=== PATIENT | male | born 1965 | race African-American/Black ===

== ENCOUNTER → 2024-01-15 16:58 | Outpatient (REF) | payer BC, SELFPAY | LOC: RAD 16:58 | PROVIDERS: ATTENDING PHYSICIAN Registered Nurse | DX: M54.41 Lumbago with sciatica, right side (principal) | CPT/HCPCS: 72110 ==

== ENCOUNTER → 2024-02-18 19:55 | Outpatient (REF) | payer BC, SELFPAY | LOC: MRI 19:55 | PROVIDERS: ATTENDING PHYSICIAN Family Medicine | DX: R20.2 Paresthesia of skin (principal); M54.41 Lumbago with sciatica, right side | CPT/HCPCS: 72141; 72148 ==

== ENCOUNTER → 2024-04-26 19:14 | Outpatient (REF) | payer BC, SELFPAY | LOC: MRI 19:14 | PROVIDERS: ATTENDING PHYSICIAN Family Medicine | DX: M54.41 Lumbago with sciatica, right side (principal); R20.2 Paresthesia of skin | CPT/HCPCS: 70551 ==

== ENCOUNTER 2024-10-09 19:37 | Emergency (ER) | payer BC, SELFPAY ==
[2024-10-09 19:37] VITALS: BMI 31.8
[2024-10-09 19:42] VITALS: BP 150/95
[2024-10-09 20:19] LABS: % Basophils 0.8 % (0-2); % Eosinophils 0.5 % (0-6); % Immature Granulocytes 0.3 % (0-0.5); % Lymphocytes 57.3 % (20.5-51.1); % Monocytes 9.1 % (1.7-9.3); Absolute Lymphocytes 2.3 10^3/uL (1.2-3.4); Absolute Monocytes 0.4 10^3/uL (0.1-0.6); Absolute Neutrophils 1.3 10^3/uL (1.4-6.5); Hematocrit 33.7 % (39.0-52.0); Hemoglobin 11.6 g/dL (13.0-18.0); Mean Corp Hgb Conc. 34.4 g/dL (33.0-37.0); Mean Corpuscular Hgb 32.3 pg (27.0-31.0); Mean Corpuscular Volume 93.9 fL (80.0-94.0); Mean Platelet Volume 9.4 fL (7.4-10.4); Nucleated Red Blood Cells % 0 % (-); Platelet Count 191 10^3/uL (130-400); Red Blood Cell Count 3.59 10^6/uL (4.70-6.10); Red Cell Dist. Width 13.2 % (11.5-14.5)
[2024-10-09 20:23] LABS: ALT (SGPT) 35 U/L (0-50); AST (SGOT) 100 U/L (17-59); Albumin 4.6 g/dl (3.5-5.0); Alkaline Phosphatase 64 U/L (38-126); Blood Urea Nitrogen 10 mg/dl (9-20); Carbon Dioxide 26 mmol/L (22-30); Chloride 108 mmol/L (98-107); Glucose 96 mg/dl (70-99); Potassium 3.4 mmol/L (3.5-5.1); Sodium 147 mmol/L (135-145); Total Bilirubin 0.5 mg/dl (0.2-1.3); Total Protein 8.2 g/dl (6.3-8.2); eGFR > 60.00
[2024-10-09 21:42] VITALS: BP 131/90
[2024-10-09 22:00] VITALS: BP 124/78
[2024-10-09 22:03] VITALS: BP 126/82
--- NOTE | 2024-10-09 22:27 | ED.GENMED ---
History of Present Illness
General
Chief Complaint: Cardiac Symptoms
Source: patient
Exam Limitations: none
Time Seen by Provider: 10/09/24 22:14
History of Present Illness
History of Present Illness:
Patient noted an irregular heartbeat on his Apple Watch. Asymptomatic. No chest pain shortness of breath syncope or other complaints. Remote history of A-fib once. Was transiently on Eliquis at that time. Currently takes an aspirin a day
Past History
Past History
ED Past Medical History: Arrthythmia, GERD, HTN and Hypercholesterolemia
ED Past Surgical History: Orthopedic and Other (Umbilical hernia repair)
Social History
Tobacco: Non-smoker
Alcohol: Daily (Patient states that this is somewhat new as he recently lost his job and has been drinking more frequently)
Drug: None
Personal:
Living: with family
Review of Systems
Review of Systems
All Other Systems: Not applicable
Constitutional: Denies fever
Respiratory: Reports no symptoms
Cardiac: Reports no symptoms
Phy Exam
Physical Exam
Physical Exam:
GENERAL: Alert and oriented in no apparent distress
EYE: Orbits normal.
NECK: Supple, no significant adenopathy.
ENT: Pharynx without erythema
CARDIAC: Mildly irregular. No murmur
LUNGS: Clear breath sounds,normal
ABDOMEN: Soft, without focal tenderness or distention
NEUROLOGICAL: Alert and oriented , grossly non-focal
SKIN: Warm and dry, no rash or lesion, no discoloration, skin intact.
MUSCULOSKELETAL: No edema,no deformity.Good color
PSYCH: Normal and appropriate interaction.
Scores
[id number] Score for Afib Stroke Risk
Age in Years (65=0, 65-74=1, >/=75=2): <65
Sex (Female=+1): Male
Congestive Heart Failure History (Yes=+1): No
Hypertension History (Yes=+1): Yes
Stroke/TIA/Thromboembolism History (Yes=+2): No
Vascular Disease History (Yes=+1): No
Diabetes Mellitus (Yes=+1): No
Score: 1
Anticoagulation Recommendations: Consider anticoagulation (as validated in nonvalvular fib)
Course
Orders/Labs/Results
Orders:
Orders
10/09/24 19:38
ECG [Electrocardiogram (*1)] Urgent
Reason for Study: Atrial Fibrillation
EKG- Treatment ONCE
10/09/24 19:56
CMP [Comprehensive Metabolic Panel] Urgent
Complete Blood Count/With Diff Urgent
10/09/24 23:14
Apixaban [Eliquis] 5 mg PO NOW STA
Abnormal Lab Results
10/09/24
19:56
WBC 4.0 L 10^3/uL
(4.8-10.8)
RBC 3.59 L 10^6/uL
(4.70-6.10)
Hgb 11.6 L g/dL
(13.0-18.0)
Hct 33.7 L %
(39.0-52.0)
MCH 32.3 H pg
(27.0-31.0)
Absolute Neuts (auto) 1.3 L 10^3/uL
(1.4-6.5)
Neutrophils % 32.0 L %
(42.2-75.2)
Lymphocytes % 57.3 H %
(20.5-51.1)
Sodium 147 H mmol/L
(135-145)
Potassium 3.4 L mmol/L
(3.5-5.1)
Chloride 108 H mmol/L
(98-107)
AST 100 H U/L
(17-59)
10/09/24 19:56
10/09/24 19:56
Vital Signs
Initial and Last Documented VS:
Initial Vital Signs
Temp Pulse Resp BP Pulse Ox
98.4 F 88 18 150/95 98
10/09/24 19:42 10/09/24 19:42 10/09/24 19:42 10/09/24 19:42 10/09/24 19:42
Last Documented Vital Signs
Temp Pulse Resp BP Pulse Ox
98.4 F 60 16 126/82 98
10/09/24 19:42 10/09/24 22:03 10/09/24 22:03 10/09/24 22:03 10/09/24 22:03
MDM/Problems Addressed
Differential Diagnosis Includes:
Patient asymptomatic with a rate controlled atrial fibrillation. Brian Vascor of 1. No contraindication anticoagulation. Discussed with cardiology. Not comfortable depending enough on the Apple Watch to cardiovert currently. Also is
asymptomatic. Will have outpatient close follow-up and start Eliquis. Risk-benefit of Eliquis explained to the patient
*Pulse Oximetry
Patient hypoxic: no
*EKG
Interpreted by ED Provider?: Yes
Interpretation: abnormal
Comparison EKG: changes noted
Heart Rate: 72
Rate: normal
Rhythm: a-fib
[place]: left axis deviation
Interval: normal interval
QRS Pattern: normal QRS
Ischemia: non-specific ST changes
*Electorate Officer Interpretation
Rate: normal
Interpretation: abnormal
Heart Rate: 66
*Critical Care Note
Total Time (30-74mins, 75-104mins- exclusive of procedures): Not Applicable
Data Reviewed
Review of Other/Old Records Reveals: Labs, Records and Testing
ED Attending Note
-
Portions of this chart may have been created with voice recognition software.� Occasional wrong word or��sound alike� substitutions may have occurred due to the inherent limitations of voice recognition software.
Discharge Plan
Departure
Patient Disposition: Home (Routine Discharge)
Date of Disposition: 10/09/24
Time of Disposition: 23:16
Patient with high blood pressure during this ER visit?: Yes
Discharge Problem:
Paroxysmal atrial fibrillation
Instructions: How to take anticoagulants safely, Managing increased bleeding risk, Atrial fibrillation - Discharge instructions, BLOOD PRESSURE
Prescriptions:
New
Eliquis 5 mg tablet
5 mg PO BID Qty: 60 0RF
No Action
diltiazem HCl [Cardizem CD] 360 MG capsule,extended release 24hr
360 mg PO DAILY
folic acid 400 mcg Tablet
0.4 mg PO DAILY
rosuvastatin [Crestor] 5 MG tablet
5 mg PO DAILY
omeprazole 40 mg capsule,delayed release(DR/EC)
40 mg PO DAILYPRN PRN (Reason: REFLUX)
aspirin 81 mg tablet,delayed release (DR/EC)
81 mg PO DAILY
omega 3-vuk-pox-fish oil [Fish Oil] 1,000 mg (120 mg-180 mg) Capsule
1 cap PO DAILY
calcium carbonate-vitamin D3 [Caltrate with Vitamin D3] 600 mg-20 mcg (800 unit) Tablet
2 tab PO DAILY
acetaminophen 325 mg Tablet
650 mg PO Q4HPRN PRN (Reason: mild pain) Qty: 0 0RF
simethicone 80 mg Tablet,Chewable
80 mg PO QIDPRN PRN (Reason: gas pain/bloat) Qty: 14 0RF
Referrals:
Donnie Hanna MD [Active] - Next open appointment
NONE,* [Family Provider] -
Activity Restrictions/Additional Instructions:
The cardiology group should call you tomorrow. If they have not please call them in the morning.
Start the blood thinner.
Interventions
Interventions:
*Risk Screen - Suicide Last Done: 10/09/24 19:42
*General Assessment Last Done: 10/09/24 19:42
*Neglect/Abuse Screening Last Done: 10/09/24 19:42
*ED- Fall Risk Assessment Last Done: 10/09/24 19:42
*ED COVID-19 Vaccine History Last Done: 10/09/24 19:42
*Nursing Disposition Last Done: 10/09/24 23:30
ED- Pulmonary Assessment Last Done: 10/09/24 21:51
ED- Cardiac Assessment Last Done: 10/09/24 21:51
Discharge Date and Time
Discharge Date/Time: 10/09/24 23:31
Print Language: ICELANDIC
[2024-10-09] MEDS: ELIQUIS 5 MG PO (23:21)
== END 2024-10-09 23:31 | disposition home or self-care (01) ==
LOC: EMR 19:37
PROVIDERS: Emergency Medicine; EMERGENCY PHYSICIAN Emergency Medicine
DX: I48.0 Paroxysmal atrial fibrillation (principal); E78.00 Pure hypercholesterolemia, unspecified; I10 Essential (primary) hypertension
CPT/HCPCS: 99284; 80053; 85025; 93005

== ENCOUNTER 2024-10-14 06:47 | Day surgery (SDC) | payer BC, SELFPAY | END 2024-10-14 09:30 | disposition home or self-care (01) | LOC: CATH 06:47 | PROVIDERS: ATTENDING PHYSICIAN Student in an Organized Health Care Education/Training Program; FAMILY PHYSICIAN Family Medicine; OTHER PHYSICIAN Internal Medicine | DX: I48.91 Unspecified atrial fibrillation (principal); I08.3 Combined rheumatic disorders of mitral, aortic and tricuspid valves; I31.39 Other pericardial effusion (noninflammatory) | CPT/HCPCS: 93312; 93320; 93325; 92960; 93005 ==

== ENCOUNTER → 2024-10-24 10:22 | Outpatient (REF) | payer BC, SELFPAY ==
[2024-10-24 11:10] LABS: % Immature Granulocytes 0.3 % (0-0.5); % Monocytes 9.7 % (1.7-9.3); Absolute Monocytes 0.3 10^3/uL (0.1-0.6); Absolute Neutrophils 1.7 10^3/uL (1.4-6.5); Hematocrit 32.1 % (39.0-52.0); Hemoglobin 10.6 g/dL (13.0-18.0); Mean Corpuscular Hgb 31.5 pg (27.0-31.0); Mean Corpuscular Volume 95.5 fL (80.0-94.0); Mean Platelet Volume 9.3 fL (7.4-10.4); Nucleated Red Blood Cells % 0 % (-); Platelet Count 190 10^3/uL (130-400); Red Blood Cell Count 3.36 10^6/uL (4.70-6.10)
[2024-10-24 11:25] LABS: ALT (SGPT) 20 U/L (0-50); AST (SGOT) 27 U/L (17-59); Albumin 4.6 g/dl (3.5-5.0); Alkaline Phosphatase 55 U/L (38-126); Blood Urea Nitrogen 8 mg/dl (9-20); Calcium 9.7 mg/dl (8.4-10.2); Carbon Dioxide 26 mmol/L (22-30); Chloride 105 mmol/L (98-107); Glucose 107 mg/dl (70-99); HDL Cholesterol 83 mg/dl; Iron 103 ug/dl (49-181); LDL Cholesterol, Calculated 49 mg/dl; Potassium 3.7 mmol/L (3.5-5.1); Sodium 144 mmol/L (135-145); Total Bilirubin 0.5 mg/dl (0.2-1.3); Total Cholesterol 148 mg/dl (50-199); Total Protein 7.4 g/dl (6.3-8.2); Triglyceride 83 mg/dl (10-149); Very Low Density Lipoprotein 16 mg/dl (0-30); eGFR > 60.00
[2024-10-24 11:34] LABS: Percent Saturation 37 % (20-50); Total Iron Binding Capacity 278 ug/dl (261-462)
[2024-10-24 11:40] LABS: Vitamin D, 25-OH*** 25.8 ng/mL (30-80)
[2024-10-24 11:53] LABS: TSH Reflex To Free T4 3.37 uIU/ml (0.47-4.68)
[2024-10-24 12:30] LABS: Folate > 20.0 ng/ml (2.76-20); Vitamin B12 705 pg/ml (239-931)
[2024-10-25 12:14] LABS: Intact PTH 49.6 pg/ml (13.6-85.8)
[2024-10-25 16:37] LABS: % Free Testosterone 1.5 % (1.6-2.9); Free Testosterone 73 pg/mL (47-244); Sex Hormone Binding Globulin 52 nmol/L (19-76); Testosterone, Bioavailable 195 ng/dL (131-682); Total Testosterone 498 ng/dL (300-720)
== END ==
LOC: REG 10:22
PROVIDERS: ATTENDING PHYSICIAN Registered Nurse; FAMILY PHYSICIAN Family Medicine; REFERRING PHYSICIAN Internal Medicine
DX: M54.16 Radiculopathy, lumbar region (principal); M54.12 Radiculopathy, cervical region; E87.6 Hypokalemia; N25.81 Secondary hyperparathyroidism of renal origin; D64.9 Anemia, unspecified; D70.9 Neutropenia, unspecified; F10.10 Alcohol abuse, uncomplicated; K21.9 Gastro-esophageal reflux disease without esophagitis; I10 Essential (primary) hypertension; E55.9 Vitamin D deficiency, unspecified
CPT/HCPCS: 36415; 80053; 80061; 82306; 82607; 82728; 82746; 83540; 83550; 83970; 84270; 84402; 84403; 84443; 85025; G0103

== ENCOUNTER 2024-11-03 08:15 | Day surgery (SDC) | payer BC, SELFPAY ==
[2024-10-24 09:52] VITALS: BMI 33.9
[2024-10-24 10:20] LABS: % Basophils 0.7 % (0-2); % Eosinophils 0.4 % (0-6); % Lymphocytes 32.1 % (20.5-51.1); % Monocytes 9.2 % (1.7-9.3); % Neutrophils 57.6 % (42.2-75.2); Absolute Lymphocytes 0.9 10^3/uL (1.2-3.4); Absolute Monocytes 0.3 10^3/uL (0.1-0.6); Absolute Neutrophils 1.6 10^3/uL (1.4-6.5); Hematocrit 32.9 % (39.0-52.0); Hemoglobin 10.9 g/dL (13.0-18.0); Mean Corp Hgb Conc. 33.1 g/dL (33.0-37.0); Mean Corpuscular Hgb 31.7 pg (27.0-31.0); Mean Corpuscular Volume 95.6 fL (80.0-94.0); Mean Platelet Volume 9.3 fL (7.4-10.4); Nucleated Red Blood Cells % 0 % (-); Platelet Count 193 10^3/uL (130-400); Red Blood Cell Count 3.44 10^6/uL (4.70-6.10); Red Cell Dist. Width 13.2 % (11.5-14.5); White Blood Cell Count 2.7 10^3/uL (4.8-10.8)
[2024-10-24 10:37] LABS: ALT (SGPT) 20 U/L (0-50); AST (SGOT) 28 U/L (17-59); Albumin 4.2 g/dl (3.5-5.0); Alkaline Phosphatase 55 U/L (38-126); Blood Urea Nitrogen 9 mg/dl (9-20); Calcium 9.8 mg/dl (8.4-10.2); Carbon Dioxide 26 mmol/L (22-30); Chloride 105 mmol/L (98-107); Estimated Creatinine Clearance 117 ml/min; Glucose 106 mg/dl (70-99); Potassium 3.7 mmol/L (3.5-5.1); Sodium 143 mmol/L (135-145); Total Bilirubin 0.5 mg/dl (0.2-1.3); eGFR > 60.00
[2024-11-03] VITALS (10 sets, daily range): BP systolic 120–147; BP diastolic 76–90
[2024-11-03 11:29] LABS: ACT-LR - POC 356 Seconds (116-155)
[2024-11-03 11:29] LABS: ACT-LR - POC 266 Seconds (116-155)
--- NOTE | 2024-11-03 11:51 | ITS.CL.ABL ---
Manager Risk Management - Ablation
Ablation
Procedure Report:
AFIB ablation:
Mr. Dumont is a very pleasant 58 yr old gentleman with symptomatic paroxysmal AF, is recommended for atrial fibrillation ablation.
Date of the Procedure:
11/03/2024
Indications:
Paroxysmal atrial fibrillation
Pre-Operative Diagnosis:
Paroxysmal atrial fibrillation
Post-Operative Diagnosis:
Paroxysmal atrial fibrillation
Procedure Performed:
Atrial fibrillation ablation with Pulsed-Field approach for pulmonary vein isolation
Performing Physician:
Donnie Hanna MD
Assistants:
EP staff
Anesthesia:
See anesthesia records
Detailed Description of the Procedure:
Written informed consent was obtained from the patient after a full explanation of the risks and benefits of the procedure including the risks of sedation and anesthesia.
The patient was brought to the electrophysiology laboratory in stable condition in fasting state. Continuous electrocardiographic and hemodynamic monitoring was initiated.
The initial rhythm was sinus.
The procedure site was meticulously prepared with surgical scrub and allowed to dry with no pooling. Sterile draping was applied to cover the procedure site. The image intensifier was draped with sterile bag and positioned over the patient. After
infusion of local anesthetic, vascular access was obtained under ultrasound guidance and sheaths were placed over guide wire as detailed below.
Sheath and Catheter Placement:
The following catheters / sheaths were placed
Sheaths:
��������� 17Fr steerable sheath (B2B-Centeradrive�, [employer]) in right femoral
��������� 10Fr in right femoral vein
Catheters:
��������� CONSTANCE HD Grid mapping catheter � at locations of RA, LA
��������� Farawave� PFA catheter
��������� ICE catheter �Cerna ViewFlex - at locations of RA, SVC, and RV.
Intracardiac ECHO:
An 8-[place] AcuNav intracardiac ECHO (ICE) probe was advanced through the 9-[place] sheath in the right femoral vein into the right atrium under fluoroscopic and ICE ultrasound image guidance and a baseline ECHO study was performed. The left atrial
size was normal. There was moderate tricuspid regurgitation. The aortic valve was grossly normal. There was normal left ventricular systolic functions. There is no pericardial effusion. All the four veins were identified and has flow identified.
There was good flow noted in the CHRIS.
During the procedure, ICE was used for monitoring of complications, guidance of trans-septal puncture, monitor the catheter position and tracking ablation lesions. No change in the pericardial space noted throughout the procedure.
Trans-septal Puncture:
Heparin was initiated and infused to maintain appropriate ACT. A pigtail guidewire was advanced through the 8-[place] sheath in the right femoral vein into the superior vena cava under fluoroscopic and ICE guidance. The 9-[place] sheath was exchanged
for a Faradrive sheath which was advanced into the superior vena cava. A transseptal RF pigtail via Faradrive connect system was utilized to perform the trans-septal puncture. The apparatus was withdrawn until it was in contact with the fossa
ovalis. The position was adjusted based on fluoroscopy and ultrasound images from ICE. Under fluoroscopic, hemodynamic and ICE ultrasound guidance, left atrium was cannulated by applying RF energy. Once atrial septum was cannulated, the pigtail wire
was advanced through the needle into the left atrium. The guide wire was advanced into the left superior pulmonary vein. Both the sheath and the dilator was advanced into the left atrium. The dilator with the needle was withdrawn. Blood was
aspirated from the Faradrive sheath and arterial blood confirmed. The sheath was flushed. Saline injection noted into the left atrium on ICE. The mapping catheter was advanced in the sheath into the left pulmonary vein. Left atrial pressure was
measured.
3D Electroanatomic Mapping:
Using the HD Grid catheter advanced through sheath into the left atrium, an electroanatomic map (EAM) of the left atrium was created using [employer] CONSTANCE mapping system. The map was used for localization of catheter position and tacking of ablation
lesions.
The EAM of the left atrium showed 4 pulmonary veins with all 4 veins electrically connected to the body the LA. It showed normal voltage on the posterior and anterior wall of the LA. The LA was mildly dilated in size.
Following the EAM, preparation were made for ablation.
Ablation:
Ablation # 1: Pulmonary vein Isolation:
Glycopyrrolate 0.2 mg was given prior to the placement of ablation. Using A [place] pulsed wave ablation system, pulmonary vein isolation was achieved. First the ablation catheter was placed in the LIPV and ostial ablation lesions were performed in a
counter clock floyd approach all around the PV ostium circumferentially. Then the catheter was placed on the antral location and multiple ablation lesions were placed circumferentially on the antrum of the vein.
In the similar fashion, the LSPV were isolated.
Then the catheter was moved to right sided veins. The ostial and antral ablations were placed as noted above.
EPS and Confirmation of the PVI and bidirectional block:
Following achievement of entrance block at the pulmonary veins, pacing from the HD catheter in each of the four veins at 10 milliamps for 2 milliseconds showed entrance and exit block. All PVI were rechecked at the end of the case and remained
isolated. Entrance and exit block were demonstrated in all veins.
Post ablation Electroanatomic mapping:
Once ablation was completed, the EAM of the LA was done again in sinus rhythm with excellent demarcation of LA myocardium and isolated antral tissue. There was no significant scarring noted in the LA.
The CHRIS had healthy signals and was not isolated.
Procedure End
ICE study was done again that showed no epicardial accumulation. No complications noted.
Following the completion of the EP study, catheters were removed. Protamine 40 mg was given to reverse heparin.
The sheaths were removed and hemostasis achieved with Figure of 8 suture and manual compression after acceptable ACT is achieved.
Left atrial Pressure:
Mean LA pressure was 11mmHg
Estimated Blood loss:
<10 cc
Specimens Removed:
None.
Implants / Devices:
None
Urine output:
None
Packs / Drains/ Tubes:
None
Instrument / Sponge Count Correct:
Yes
Complications of the Procedure:
None
Condition of Patient at Time of Transfer:
Hemodynamically stable with no neurological or vascular compromise.
Summary:
Successful atrial fibrillation ablation with Pulsed Field approach for pulmonary vein isolation.
Figures from the Procedure:
Figure 1: The electroanatomic mapping (EAM) of the left atrium with bipolar voltage (purple indicates normal electrical activity with wells as no myocardial muscle electric activity indicating a line of block or scar.
--- NOTE | 2024-11-03 15:12 | W.PN.UPDATE ---
Update Note
Progress Note Update
58 yo BM s/p PVI (same day). He denies cp, sob, thiago diet, voiding, R fem site c/d/i no HT, soft, EKG SR 1 deg AVB. He will resume eliquis tonight and continue diltiazem. Activity restrictions reviewed. He will f/u [employer] in 2 weeks. He is for d/c home
after 430p.
[2024-11-03 15:35] LABS: ACT-LR - POC 297 Seconds (116-155)
== END 2024-11-03 16:35 | disposition home or self-care (01) ==
LOC: CATH 08:15
PROVIDERS: ATTENDING PHYSICIAN Internal Medicine Cardiovascular Disease; FAMILY PHYSICIAN Family Medicine; OTHER PHYSICIAN Internal Medicine
DX: I48.0 Paroxysmal atrial fibrillation (principal); I10 Essential (primary) hypertension; E78.00 Pure hypercholesterolemia, unspecified; E78.1 Pure hyperglyceridemia; E66.9 Obesity, unspecified; Z79.01 Long term (current) use of anticoagulants
CPT/HCPCS: C1732; C1892; C1759; 36415; 80053; 85025; 85347; 86850; 86900; 86901; 93005; 93656; C1733; C1766